=== PATIENT | female | born 1950 | race Caucasian/White ===

== ENCOUNTER 2023-01-29 12:59 | Emergency (ER) | payer BC, MEDICAID ==
[~2023-01-29] VITALS: Ht 171.4 cm; Wt 109.6 kg
[~2023-01-29 12:59] MED LIST: ASPI-612 PO; LOSA25TA96 PO; NITR0.4T51 SL; NORCO10T PO
[2023-01-29 13:02] VITALS: BP 219/119
[2023-01-29] MEDS ORDERED: fluconazole 150mg tablet PO ONE (14:30)
[2023-01-29] MEDS ORDERED: HYDR28.316 TOP (14:39)
[2023-01-29] MEDS ORDERED: PHEN1SUP96 PR (14:39)
[2023-01-29] MEDS ORDERED: MICO45CR46 VG (14:39)
== END 2023-01-29 15:10 | disposition home or self-care (01) ==
LOC: ER 12:59
DX: B37.31 Acute candidiasis of vulva and vagina (principal); K64.9 Unspecified hemorrhoids; E78.00 Pure hypercholesterolemia, unspecified; I10 Essential (primary) hypertension; M19.90 Unspecified osteoarthritis, unspecified site; Z88.5 Allergy status to narcotic agent; Z91.018 Allergy to other foods; Z90.49 Acquired absence of other specified parts of digestive tract; Z90.710 Acquired absence of both cervix and uterus
CPT/HCPCS: 87210; 99284